=== PATIENT | female | born 1995 | race Two or more races ===

== ENCOUNTER 2016-12-04 17:15 | Emergency (ER) | payer MEDICARE, OTHER ==
[~2016-12-04] VITALS: Ht 157.5 cm; Wt 81.6 kg
[2016-12-04 17:50] LABS: BILIRUBIN,URINE NEGATIVE (NEG); GLUCOSE,URINE NEGATIVE (NEG); NITRITE,URINE NEGATIVE (NEG); PH,URINE 7.5; PROTEIN,URINE NEGATIVE (NEG-TRACE); UROBILINOGEN,URINE 0.2 mg/dL (0.2 mg/dL)
--- NOTE | 2016-12-04 17:54 | EKG ---
[facility] [address] [place] [address] Test Date: 2016-12-04 Test Time: 17:37:08 Pat Name: JOSE GANT Department: Room: Gender: F Wood [employer]: : 1995 Requested By: VICTOR HUGO JEONG Order Number: [id number] Reading MD: Measurements Intervals [place] Rate: 68 P: 18 VA: 126 QRS: 20 QRSD: 84 T: 10 QT: 388 QTc: 413 Interpretive Statements SINUS RHYTHM QRS(T) CONTOUR ABNORMALITY CONSIDER ANTEROSEPTAL MYOCARDIAL DAMAGE RI6.01 Unconfirmed report No previous ECG available for comparison
[2016-12-04] MEDS ORDERED: LIDO:MAALOX:DONNATAL 1:1:1 15 ML SINGLE DOSE SWSW ONE (18:00)
[2016-12-04 18:02] LABS: BACTERIA,URINE 0 /HPF (0-FEW); RBC,URINE 0 /HPF (0-2); SQUAMOUS EPITHELIAL CELL,UR FEW /LPF; WBC,URINE OCC /HPF (0-4)
[2016-12-04 18:08] LABS: BASO # 0.1 x10^3/uL (0.0-0.2); BASO % 1 % (0-3); EOS % 1 % (0-3); HEMOGLOBIN 14.4 g/dL (12.0-15.5); LYMPH # 1.9 x10^3/uL (1.0-4.8); LYMPH % 28 % (24-48); MEAN CORPUSCULAR HEMOGLOBIN 31 pg (25-35); MEAN CORPUSCULAR HGB CONC 34 g/dL (31-37); MEAN CORPUSCULAR VOLUME 90 fL (79-100); MONO % 7 % (0-9); NEUT % 63 % (31-73); PLATELET COUNT 300 x10^3/uL (140-400); RED BLOOD COUNT 4.69 x10^6/uL (3.50-5.40); RED CELL DISTRIBUTION WIDTH 13.1 % (11.5-14.5); WHITE BLOOD COUNT 6.8 x10^3/uL (4.0-11.0)
[2016-12-04 18:17] LABS: BARBITURATES NEG (NEG); BENZODIAZEPINES NEG (NEG); CANNABINOIDS NEG (NEG); COCAINE NEG (NEG); METHADONE NEG (NEG); OPIATES NEG (NEG); PHENCYCLIDINE NEG (NEG)
[2016-12-04 18:19] LABS: CALCIUM 9.3 mg/dL (8.5-10.1); CREATININE 0.6 mg/dL (0.6-1.0); GFR 123.9; NEG OBC SER NEG; POS OBC SER POS; POTASSIUM 3.8 mmol/L (3.5-5.1)
[2016-12-04 18:27] LABS: ALBUMIN 3.6 g/dL (3.4-5.0); ALBUMIN/GLOBULIN RATIO 0.9 (1.0-1.7); TOTAL BILIRUBIN 0.2 mg/dL (0.2-1.0); TOTAL PROTEIN 7.8 g/dL (6.4-8.2)
--- NOTE | 2016-12-04 20:27 | ED.ADGEN ---
Past Medical History Past Medical History: High Cholesterol Past Surgical History: No Surgical History Additional Information: 0.25 PPD Alcohol Use: Occasionally Drug Use: None Adult General Chief Complaint Chief Complaint: CHEST PAIN HPI HPI Patient is a 21 year old woman, with history of hypercholesterolemia, obesity, fatty liver, who presents to the emergency department with a complaint of chest and abdominal pain that began yesterday. Since states that she is experiencing soreness on the sides of her abdomen, with pain that radiates from the lower part of her chest in the upper part of her chest, states she is feeling a pressure and is worse when she lies flat. She states that she has had some mild nausea, and states that she does have "bad taste in the mouth in the morning". She denies any history of GERD. She states that deep inspiration, motion does not worsen symptoms, denies any shortness of breath. Denies any focal weakness, numbness, tingling him a denies any back pain, denies any other radiation of her symptoms, any numbness or tingling, any headache, any urinary complaints, any discharge or drainage from the vagina. She states she has not taken any medications at home for discomfort prior to coming to the ED, states and symptoms of been constant since yesterday. No history of DVT or PE in himself or family members, she is not taking any medications regular basis, no swelling of the extremities, rashes, no recent travel or surgery. Review of Systems Review of Systems Constitutional: Denies fever or chills. [] Eyes: Denies change in visual acuity. [] HENT: Denies nasal congestion or sore throat. [] Respiratory: Denies cough or shortness of breath. [] Cardiovascular: Denies chest pain or edema. [] GI: Denies abdominal pain, nausea, vomiting, bloody stools or diarrhea. [] : Denies dysuria. [] Musculoskeletal: Denies back pain or joint pain. [] Integument: Denies rash. [] Neurologic: Denies headache, focal weakness or sensory changes. [] Endocrine: Denies polyuria or polydipsia. [] Lymphatic: Denies swollen glands. [] Psychiatric: Denies depression or anxiety. [] Current Medications Current Medications Current Medications Medications (Trade) Dose Ordered Sig/Jesus Start Time Stop Time Status Last Admin Dose Admin Multi-Ingredient Mouthwash/Gargle (Gi Cocktail Single Dose) 15 ml 1X ONCE 12/04/16 18:00 12/04/16 18:01 DC 12/04/16 18:16 15 ML Allergies Allergies Allergies Coded Allergies Type Severity Reaction Last Updated Verified No Known Drug Allergies 12/04/16 No Physical Exam Physical Exam Constitutional: Well developed, well nourished, no acute distress, non-toxic appearance. [] HENT: Normocephalic, atraumatic, bilateral external ears normal, oropharynx moist, no oral exudates, nose normal. [] Eyes: PERRLA, EOMI, conjunctiva normal, no discharge. [] Neck: Normal range of motion, no tenderness, supple, no stridor. [] Cardiovascular:Heart rate regular rhythm, no murmur, S1, S2, no rubs or gallops. No chest or crepitus or tenderness. No lesions or abnormalities identified. [] Lungs & Thorax: Bilateral breath sounds clear to auscultation, no wheezing, rhonchi, rales. [] Abdomen: Bowel sounds normal, soft, no tenderness, no rebound, rigidity, no guarding. Patient points to the sides of her abdomen as per report of "flank pain", as soreness, which is experiencing a soreness currently. No masses, no pulsatile masses. [] Skin: Warm, dry, no erythema, no rash. [] Back: No tenderness, no CVA tenderness. [] Extremities: No tenderness, no cyanosis, no clubbing, ROM intact, no edema. Negative Homans sign.[] Neurologic: Alert and oriented X 3, normal motor function, normal sensory function, no focal deficits noted. [] Psychologic: Affect normal, judgement normal, mood normal. [] Current Patient Data Vital Signs Vital Signs Date Time Temp Pulse Resp B/P (MAP) Pulse Ox O2 Delivery O2 Flow Rate FiO2 12/04/16 19:09 60 119/73 (88) 98 Room Air 12/04/16 18:39 21 12/04/16 17:45 98.6 98.6 Lab Values Laboratory Tests Test 12/04/16 17:40 12/04/16 17:45 12/04/16 17:57 12/04/16 20:36 Urine Collection Type Unknown Urine Color Yellow Urine Clarity Cloudy Urine pH 7.5 Urine Specific [place] 1.010 Urine Protein Negative mg/dL (NEG-TRACE) Urine Glucose (UA) Negative mg/dL (NEG) Urine Ketones (Stick) Negative mg/dL (NEG) Urine Blood Negative (NEG) Urine Nitrite Negative (NEG) Urine Bilirubin Negative (NEG) Urine Urobilinogen Dipstick 0.2 mg/dL (0.2 mg/dL) Urine Leukocyte Esterase Negative (NEG) Urine RBC 0 /HPF (0-2) Urine WBC Occ /HPF (0-4) Urine Squamous Epithelial Cells Few /LPF Urine Bacteria 0 /HPF (0-FEW) Urine Mucus Slight /LPF Urine Opiates Screen Neg (NEG) Urine Methadone Screen Neg (NEG) Urine Barbiturates Neg (NEG) Urine Phencyclidine Screen Neg (NEG) Urine Amphetamine/Methamphetamine Neg (NEG) Urine Benzodiazepines Screen Neg (NEG) Urine Cocaine Screen Neg (NEG) Urine Cannabinoids Screen Neg (NEG) Urine Ethyl Alcohol Neg (NEG) POC Urine HCG, Qualitative Hcg negative (Negative) White Blood Count 6.8 x10^3/uL (4.0-11.0) Red Blood Count 4.69 x10^6/uL (3.50-5.40) Hemoglobin 14.4 g/dL (12.0-15.5) Hematocrit 42.0 % (36.0-47.0) Mean Corpuscular Volume 90 fL (79-100) Mean Corpuscular Hemoglobin 31 pg (25-35) Mean Corpuscular Hemoglobin Concent 34 g/dL (31-37) Red Cell Distribution Width 13.1 % (11.5-14.5) Platelet Count 300 x10^3/uL (140-400) Neutrophils (%) (Auto) 63 % (31-73) Lymphocytes (%) (Auto) 28 % (24-48) Monocytes (%) (Auto) 7 % (0-9) Eosinophils (%) (Auto) 1 % (0-3) Basophils (%) (Auto) 1 % (0-3) Neutrophils # (Auto) 4.3 x10^3uL (1.8-7.7) Lymphocytes # (Auto) 1.9 x10^3/uL (1.0-4.8) Monocytes # (Auto) 0.5 x10^3/uL (0.0-1.1) Eosinophils # (Auto) 0.1 x10^3/uL (0.0-0.7) Basophils # (Auto) 0.1 x10^3/uL (0.0-0.2) Sodium Level 140 mmol/L (136-145) Potassium Level 3.8 mmol/L (3.5-5.1) Chloride Level 104 mmol/L (98-107) Carbon Dioxide Level 27 mmol/L (21-32) Anion Gap 9 (6-14) Blood Urea Nitrogen 8 mg/dL (7-20) Creatinine 0.6 mg/dL (0.6-1.0) Estimated GFR (Cockcroft-Gault) 123.9 BUN/Creatinine Ratio 13 (6-20) Glucose Level 98 mg/dL (70-99) Calcium Level 9.3 mg/dL (8.5-10.1) Total Bilirubin 0.2 mg/dL (0.2-1.0) Aspartate Amino Transferase (AST) 18 U/L (15-37) Alanine Aminotransferase (ALT) 43 U/L (14-59) Alkaline Phosphatase 67 U/L (46-116) Troponin I Quantitative < 0.017 ng/mL (0.000-0.055) Total Protein 7.8 g/dL (6.4-8.2) Albumin 3.6 g/dL (3.4-5.0) Albumin/Globulin Ratio 0.9 (1.0-1.7) L Lipase 142 U/L (73-393) Serum Test, Qualitative Negative (NEG) POC Troponin I 0.00 ng/ml (<0.08) Laboratory Tests 12/04/16 17:57 Laboratory Tests 12/04/16 17:57 EKG EKG EC: Sinus rhythm, heart rate 68 bpm, mild baseline artifact noted, upright axis, QTC of 413, MA 126, QRS of 84, no ST elevations or depressions, contour abnormalities noted in the anterior septal leads. As interpreted by me. Patient pain-free.[] EC: Sinus rhythm, heart rate 54 beats are minute, upright axis, QTC of 406, MA 128, QRS of 84, contour normality is again noted as stated, no change from prior ECG. As interpreted by me. Patient pain-free. Radiology/Procedures Radiology/Procedures Chest x-ray: PA and lateral: Normal cardiopulmonary silhouette, no focal traits , no effusions, no pneumothorax, no soft tissue or bony abnormalities identified.[] Course & Med Decision Making Course & Med Decision Making Pertinent Labs and Imaging studies reviewed. (See chart for details) Patient's report of symptoms includes worsening with lying flat, radiating from the epigastric region up into the chest, and possible water brash type symptoms in the morning, concerning for possible GERD. Patient is PERC negative, ECG reveals nonspecific changes, without evidence of acute abnormality, x-rays unremarkable, patient received a GI cocktail in the ED with full resolution of symptoms. Patient's chemistries including troponin are unremarkable, patient remains pain-free after a GI cocktail as stated, repeat ECG is unchanged. Repeat troponin is negative. Patient remains asymptomatic as stated. Heart score is 0. Did discuss these findings with patient, as stated she remains pain- free. Patient states that she was told previously that she may be experiencing GERD, was told to follow-up with a GI doctor, but then moved, and has not yet followed up. Patient was given a list of available providers as stated, encouraged to schedule follow-up for additional evaluation. I did discuss concerning symptoms as the patient, and importance of additional evaluation and follow-up, patient states that she is feeling well this time, she was givengiven dietary recommendations for GERD, along with prescription for omeprazole, and clear and detailed return instructions with which she voiced understanding and agreement. Patient discharged home in stable condition, with instructions for follow-up, prescriptions, precautions and plan as above. Dragon Disclaimer Dragon Disclaimer This electronic medical record was generated, in whole or in part, using a voice recognition dictation system. Departure Impression: Primary Impression: Chest pain Additional Impressions: Abdominal pain GERD (gastroesophageal reflux disease) Disposition: HOME, SELF-CARE Condition: IMPROVED Scripts Omeprazole (OMEPRAZOLE) 40 Mg Capsule. 40 MG PO DAILY, #30 CAP Prov: VICTOR HUGO JEONG DO 12/04/16 Problem Qualifiers VICTOR HUGO JEONG DO Dec 04, 2016 20:27
[2016-12-04] MEDS ORDERED: OMEP40CA5 PO (20:28)
[2016-12-04 20:54] VITALS: BP 139/78
--- NOTE | 2016-12-05 06:16 | EKG ---
[facility] [address] [place] [address] Test Date: 2016-12-04 Test Time: 20:19:01 Pat Name: JOSE GANT Department: Room: Gender: F Head Of Marketing: : 1995 Requested By: VICTOR HUGO JEONG Order Number: [id number] Reading MD: Measurements Intervals [place] Rate: 54 P: 0 CT: 128 QRS: 15 QRSD: 84 T: 10 QT: 426 QTc: 406 Interpretive Statements SINUS RHYTHM QRS(T) CONTOUR ABNORMALITY CONSIDER ANTEROSEPTAL MYOCARDIAL DAMAGE POSSIBLY ABNORMAL ECG RI6.01 No previous ECG available for comparison
--- NOTE | 2016-12-05 07:50 | RAD ---
Indication abdominal and chest pain. A single view of the chest was obtained as well as flat and upright films of the abdomen. No prior imaging is available. The heart, pulmonary vessels and mediastinum appear normal. The lungs are clear. There is no free air. The abdominal gas pattern is normal. No organomegaly or abnormal calculi are seen. The bony structures appear grossly intact IMPRESSION: No acute finding seen in the chest or abdomen on plain films
== END 2016-12-04 21:03 | disposition home or self-care (01) ==
LOC: ER 17:15
DX: K21.9 Gastro-esophageal reflux disease without esophagitis (principal); R07.89 Other chest pain; E78.00 Pure hypercholesterolemia, unspecified; F17.200 Nicotine dependence, unspecified, uncomplicated
CPT/HCPCS: 36415; 74022; 80053; 80307; 81001; 81025; 83690; 84484; 84703; 85025; 93005; 99285-25; G0479